=== PATIENT | male | born 2005 | race Caucasian/White ===

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

== ENCOUNTER 2025-03-07 12:28 | Emergency (ER) | payer OTHER, BC, SELFPAY ==
--- OUTSIDE RECORDS SUMMARY | 2025-02-24 06:21 | XMS_ITS | Continuity of Care Document ---
Author Organization [facility] Address [address] [place] [address] Phone Care Team Providers Care [place] Name Role Phone Jr Owens MD Primary Care Provider Joan Perez APRN Attending Provider Linh Solano [employer]LECT[employer]OL ASSEMBLER Attending Provider Care Teams Patient Care Team Team Status: Active Member Role/Relationship Status Bautista Owens MD Primary Care Provider Active Visit Care Team Team Status: Inactive Member Role/Relationship Status Bautista Owens MD Primary Care Provider Active Start: December 15, 2024 End: December 15, 2024Carley Regan ProviderActiveStart: December 15, 2024 End: December 15, 2024 Visit Care Team Team Status: Inactive Member Role/Relationship Status Bautista Owens MD Primary Care Provider Active Start: December 15, 2024 End: December 15, 2024Carley Regan ProviderActiveStart: December 15, 2024 End: December 15, 2024 Visit Care Team Team Status: Inactive Member Role/Relationship Status Bautista Owens MD Primary Care Provider Active Start: January 12, 2025 End: January 12, 2025Carley Regan ProviderActiveStart: January 12, 2025 End: January 12, 2025 Patient Care Team Team Status: Inactive Member Role/Relationship Status Bautista Owens MD Primary Care Provider Active Start: February 24, 2025 End: February 24, 2025Linh Solano APRN [employer] OPERATOR-CAttending Provider ActiveStart: February 24, 2025 End: February 24, 2025 Chief Complaint and Reason for Visit Chief Complaint Admit Date STI check, new partner December 15, 2 025 10:19am Z72.51 December 15, 2024 10:41am rash January 12, 2025 6 :55pm Cough, congestion February 24, 2025 1 1:00am Reason for Visit Admit Date Screening for STD (sexually transmitted disease) December 15, 2024 10:19am Contact dermatitis January 12, 2025 6 :55pm Tinea cruris January 12, 2025 6 :55pm Allergies, Adverse Reactions, Alerts Allergen Type Severity Reaction Last Updated Verified Status No Known Allergies Allergy Unknown February 24, 2025 11:04amYesActive Social History Smoking Status Unknown if ever smoked Observation Status Observation Response Date of Response Legal Sex Male (finding) [facility] 2005 Family History Relationship Condition Age at Onset Recorded Date/T tang mother Hypertension Unknown Heart diseaseUnknown Problems Active Problems Problem Diagnosis/Recorded Date Onset Date Stat Screening for STD (sexually transmitted disease) December 15, 2024 10:10am Unknown Active Tinea cruris January 13, 2025 1:20pm Unknown Ac tive Mild acid reflux December 15, 2024 9:23am Unknown Active Contact dermatitis January 13, 2025 1:20pm Unknown Active Medications Medication Status Dose Units Route Directions Qty Days Refills S tart Date Stop Date End Date Reason(s) Instructions Adherence Clotrimazole 1 % cream Discontinued 1 APPLIC TOPICAL Twice daily 45 28 0 January 11, 2025 11:00pm February 24, 2025 11:04amto groin rashTriamcinolone Acetonide 0.1 % ointment Zbghcmnjtxsh6URTTKCAMKQLFSFcmwe times xxxqx617Tbkgxxd 2024 11:00pmDece2024 11:04amto area on right arm, left hipNo Name (No Known Home Meds) ActiveDe2024 12:00amPantoprazole 40 mg tablet,delayed release (DR/EC)DiscontinuedMGPOSeptember 2024 11:00pmSeptember 2024 9:38am Relevant Diagnostic Tests and/or Laboratory Data Laboratory Results Test Collection Date/Time Result Date/Time Result Interpretation Reference Range Result Comment Performing Site Chlamydia trachomatis DNA (NICOLASA) December 15, 2024 9:31am December 19, 2024 3:07am Negative [facility] gonorrhoeae DNA (NICOLASA)December 15, 2024 9:31amSeptember 2024 3:07amNegativeNegativeLabCorp Trichomonas vaginalis (NICOLASA)December 15, 2024 9:31amSeptember 2024 3:07amNegativeNegativePerformed at: =G - [facility] [address] [id number] Director: Laurie Torres MD, Phone: [phone] Vital Signs Vital Reading Result Reference Range Collection Date/Time Height 68 [in_i] December 15, 2024 9:48vcXrjsqy12.84 kgSept2024 9:36amBody Blmfuhiunzw47.7 [degF]97.6-99.0Sept2024 9:36amHeart Rate62 /min 60-100Sept2024 9:36amRespiratory rate14 /zrf17-10Tkjqzjwgh 25th, 2025 9:36amOxygen saturation by Pulse %95-100Sept2024 9:36amBP Wnouzmok858 mm[Hg]100-140Sept2024 9:36amBP Szwaizdhu25 mm[Hg]60-100Sept2024 9:36amBMI (Body Mass Index)25.0 kg/j0Fnszodqty2024 9:36amBody mass index (BMI) [Percentile] Per age and sex73.9 %Normal or healthy weight; 5th to 85th percentileSept2024 9:12lhSlqkxf56 [in_i]January 12, 2025 5:75rmKllfph05.84 kgOctober 2024 5:56pmBody Qhxhyftzpdu17.9 [degF]97.6-99.0October 2024 5:56pmHeart Rate84 /mdz03-293 January 12, 2025 5:56pmRespiratory rate14 /dtr76-79Furyhwp 2024 5:56pm Oxygen saturation by Pulse gvtnrswi56 %95-100October 2024 5:56pmBP Bouyicga046 mm[Hg]100-140Oct2024 5:56pmBP Gccwprehm90 mm[Hg]60-100 January 12, 2025 5:56pmBMI (Body Mass Index)25.0 kg/w0Emmfbhy2024 5:56pmBody mass index (BMI) [Percentile] Per age and sex73.5 %Normal or healthy weight; 5th to 85th percentileOctireland army community hospital 2024 5:81yfSifvhv35 [in_i]February 24, 2025 11:95ooQgowim74.84 kgDecember 2024 11:01amBody Wvxopndhcuf98.0 [degF]97.6-99.0Deceer 2024 11:01amHeart Rate77 /mfk90-631Oivehwsp 5th, 2025 11:01amRespiratory rate18 /adw87-78Kpjyhcmg 2024 11:01amOxygen saturation by Pulse cqahepuo090 %95-100December 2024 11:01amBP Cdvmivbl375 mm[Hg]100-140December 2024 11:01amBP Jjletpmmr44 mm[Hg]60-100December 2024 11:01amBMI (Body Mass Index)25.0 kg/z8Uxmtmyye2024 11:01amBody mass index (BMI) [Percentile] Per age and sex72.8 %Normal or healthy weight; 5th to 85th percentileP[facility]stown Hospital 2024 11:01am Advance Directives Advance Directive Response Recorded Date/ Time Advance Directives No July 07 11:59am Insurance Providers Guarantor Celestina Padilla Address [address] [place] [id number] Info.Home Phone: Coverage Status Update:2024 Payer Group Member ID Coverage Type Subscriber Relationship to Subscriber Effective Date Expiration Date Lindsey BEAL Id: [id number] [place] Id: [id number] [address] [place] [phone] Home Phone: Encounters Encounter Location(s) Arrival/Admit Date Discharge/Departure Date Discharge/Departure Disposition Provider(s) Departed Physician/ Provider Office Visit -[facility] [place] December 15, 2024 10:19am December 15, 2024 11:11am Discharged to home care or self care (routine discharge) Jaquan Ayers APRN Departed Referred -[facility] December 15, 2024 10:41am December 15, 2024 10:42am Discharged to home care or self care (routine discharge) Jaquan Ayers APRN Departed Physician/ Provider Office Visit -[facility] January 12, 2025 6:55pm January 12, 2025 7:09pm Discharged to home care or self care (routine discharge) Jaquan Ayers APRN Departed Physician/ Provider Office Visit -[facility] February 24, 2025 11:00am February 24, 2025 11:20am Discharged to home care or self care (routine discharge) Linh Solano APRN Recent Diagnosis Onset Date Admit Date Screening for STD (sexually transmitted disease) Unknown December 15, 2024 10:19am Contact dermatitis Unknown January 12, 2025 6:55pm Tinea cruris Unknown January 12 6:55pm Assessments Diagnosis Onset Date Resolution Status Admit Date Screening for STD (sexually transmitted disease) acuteSept2024 10:19amContact dermatitisacuteOctober 2024 6:55pmTinea crurisacuteOctober 2024 6:55pm Plan of Treatment Author Joan Perez [facility] HospitalAuthoredOctober 2024 1:21pmDiscussed with patient mild rash to right groin crease is consistent with mild fungal infection. Will treat with topical clotrimazole. Use consistently for 2 to 4 weeks. Keep area clean and dry. Follow-up with PCP if not improving over the next 7 to 10 days, sooner if significantly worsening or changing appearance such as developing sores or ulcerations. Discussed small areas of rash to right arm and left hip area appear consistent with mild contact dermatitis. Will treat with topical triamcinolone. Avoid picking or scratching areas. Keep areas clean and dry. Follow-up with PCP if not gradually improving over the next 2 weeks, sooner if significantly worsening or changing appearance. Author Joan Perez [facility] HospitalAuthoredSeptember 2024 10:11amPatient requesting STD testing without any known exposure or symptoms. Urine sample obtained which will be tested for chlamydia, gonorrhea, trichomonas. Discussed will call with results in 4 to 6 days and discuss treatment if needed. Recommend avoiding intercourse until results are known and proper treatment. Patient denies any current concerns or questions. Future Tests Future scheduled test information is unavailable Pending Tests Pending diagnostic test information is unavailable Future Visits Future appointment information is unavailable Future Procedures Future procedure information is unavailable Future Medications Future medication information is unavailable Patient Instructions Patient instructions are unavailable
[2025-03-07 12:30] VITALS: BP 136/64; PULSE 68; TEMP 36.5; O2SAT 100; BMI 25.1
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
--- OUTSIDE RECORDS SUMMARY | 2025-03-07 13:13 | XMS_ITS | Clinical Summary ---
Author Organization [facility] Address [address] [place] [address] Care Team Providers Care Monogram Operator Name Role Phone Jr Owens MD Primary Care Provider [phone] Allergies No known active allergies Medications MedicationSigDispense QuantityRefillsLast FilledStart DateEnd DateStatus FERROUS SULFATE 15 MG/0.6 ML (ELEMENTAL IRON) ORAL DROPS 1.2 mL ORAL 2 TIMES DAILY W/MEALS qs x 1 month ctive polyethylene glycol 3350(MIRALAX 100 % ORAL POWDER) One packet (8.5 mg) PO daily qs x 1 month ctive Active Problems ProblemNoted DateDiagnosed DateIron deficiency anemia, mzjwrydaiwu97/25/2008 Family History Medical HistoryRelationCommentsNoneOtherRelationStatusCommentsOther Social History Tobacco UseTypesPacks/DayYears UsedDateSmoking Tobacco: Never AssessedSex and Gender InformationValueDate RecordedSex Assigned at BirthNot on fileLegal Sex Male02/22/2012 8:12 AM ESTGender IdentityNot on fileSexual OrientationNot on file Last Filed Vital Signs Vital SignReadingTime TakenCommentsBlood Uvjgkfpy360/66004/10/2007 12:45 PM EST Ismoz672104/16/2007 3:17 PM LECJxyqlkvxtwt06.9 ??C (96.7 ??F)04/16/2007 3:17 PM ESTRespiratory Sixd014804/10/2007 12:45 PM ESTOxygen Fvujobozjy78%04/10/2007 5:29 AM ESTInhaled Oxygen Concentration--Fffycg63.2 kg (24 lb 11.1 oz)04/17/2007 8:03 AM LZMUnjdrj80 cm (2' 10.25 )04/09/2007 7:00 PM ESTBody Mass Index-- Plan of Treatment Health MaintenanceDue DateLast DoneCommentsPeds To Adult Transition Initial Elforosvva44/06/2018Peds To Adult Transition Annual Ohkicxaxyb13/06/2020HPV Vaccine (1 - Male 3-dose series)2020Meningococcal B Vaccine (1 of 2 - Standard)2Anxiety Zvmcekzlm07/06/2024epression Gbnoustak28/06/2024HIV Ozbmhehdx81/06/2024Hepatitis C Zsmvgurad28/06/2024TaP,Tdap,Td Vaccine (1 - Tdap)2024Hepatitis B Vaccine (1 of 3 - 19+ 3-dose series)5Covid- 19 Vaccine (1 - season)2024Influenza Vaccine (#1)2024 Meningococcal Conjugate VaccineAged OutNo longer eligible based on patient's age to complete this topic Insurance MemberSubscriberPlan / Payer (Effective 2007-Present)Name:Celestina Mazariegos Member ID:[id number] Relation to Subscriber:ChildName:COLEMAN MAZARIEGOS Subscriber ID:[id number] Date of :1899 (Home) (Work) Address: [address] [place] [id number] Payer ID:[id number] (NAIC) Type:PPO Address: [facility] [id number] [place] [id number] Care Teams Team MemberRelationshipSpecialtyStart DateEnd Jr Owens MD PCP - General04/19/07
[2025-03-07] MEDS: KETOROLAC TROMETHAMINE 30 MG/ML VIAL IM (13:37)
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
[2025-03-07 14:15] VITALS: BP 124/66; PULSE 55; O2SAT 97
== END 2025-03-07 14:20 | disposition home or self-care (01) ==
PROVIDERS: Emergency Provider Emergency Medicine; PCP Family Medicine
DX: S33.5XXA Sprain of ligaments of lumbar spine, initial encounter (principal); V47.5XXA Car driver injured in collision with fixed or stationary object in traffic accident, initial encounter
CPT/HCPCS: 72100; 96372; 99284; J1885